=== PATIENT | female | born 1940 | race Caucasian/White ===

== ENCOUNTER 2022-03-15 13:27 | Emergency (ER) | payer OTHER ==
[~2022-03-15] VITALS: Ht 165.1 cm; Wt 73.9 kg
[2022-03-15 13:43] VITALS: BP_SYST 122
--- NOTE | 2022-03-15 15:50 | NUR ---
DTR BRINGS IN PT FOR C/O RT FLANK PAIN X 1 WEEK AFTER A TRIP AND FALL, DENIES LOC. PT WENT TO AND WAS INFORMED TO GET CT SCAN WHICH IS WHY SHE IS HERE. DENIES DYSURIA. PT ON BLOOD THINNER FOR CARDIAC ISSUES-AFIB. SHE WAS PLACED ON ANTIBIOTICS FOR A URINARY INFECTION. C/O DYSURIA 3 DAYS AGO, FEELING BETTER NOW.
--- NOTE | 2022-03-15 15:57 | NUR ---
DR BOTELLO IN TRIAGE FOR EXAM
[2022-03-15 16:51] LABS: BASOPHILS % (AUTO) 0.6 % (0.0-2.0); EOSINOPHILS % (AUTO) 0.1 % (0.0-4.0); HEMATOCRIT 41.7 % (36-48); HEMOGLOBIN 14.2 g/dL (12.0-16.0); LYMPHOCYTES # (AUTO) 0.9 K/uL (1.0-5.5); LYMPHOCYTES % (AUTO) 12.9 % (20.5-51.5); MEAN CORPUSCULAR HEMOGLOBIN 31 pg (27-31); MEAN CORPUSCULAR HGB CONC 34 % (32-36); MEAN CORPUSCULAR VOLUME 92 fL (79.0-98.0); MONOCYTES # (AUTO) 0.7 K/uL (0.0-1.0); MONOCYTES % (AUTO) 10.2 % (1.7-9.3); NEUTROPHILS # (AUTO) 5.3 K/uL (1.8-7.7); NEUTROPHILS % (AUTO) 76.2 % (40.0-70.0); PLATELET COUNT (AUTO) 195 K/uL (130-430); RED BLOOD CELL COUNT(AUTO) 4.54 MIL/uL (4.2-6.2); RED CELL DISTRIBUTION WIDTH 13.3 % (9.0-15.0); WHITE BLOOD COUNT (AUTO) 6.9 K/uL (4.8-10.8)
[2022-03-15 19:55] LABS: ANION GAP 8 (5-15); CALCIUM 8.9 mg/dL (8.4-11.0); CHLORIDE 99 mmol/L (98-107); CREATININE 0.71 mg/dL (0.55-1.30); GLUCOSE 101 mg/dL (70-99); POTASSIUM 4.4 mmol/L (3.5-5.1); SODIUM SERUM 133 mmol/L (136-145); UREA NITROGEN, BLOOD 11 mg/dL (8-21)
[2022-03-15 20:01] LABS: ALANINE AMINOTRANSFERASE 20 U/L (12-78); ALBUMIN 3.8 g/dL (3.4-4.8); ASPARTATE AMINOTRANSFERASE 25 U/L (10-37); LIPASE 106 U/L (73-393); TOTAL BILIRUBIN 0.6 mg/dL (0.0-1.0)
[2022-03-15] MEDS ORDERED: ACET-2634 PO (20:35)
[2022-03-15 20:58] VITALS: BP_SYST 124
--- NOTE | 2022-03-15 21:00 | NUR ---
Patient given written and verbal discharge instructions and verbalizes understanding. Pt did not want to wait for results, MD Troncoso went over available results. Per pt, she will call for the rest of the results. Patient in stable condition. ID arm band removed. Rx of Acetaminophen XTRA STR sent to preffered pharmacy. Patient educated on pain management and to follow up with PMD. Pain Scale 0/10. Opportunity for questions provided and answered. Medication side effect fact sheet provided.
[2022-03-15 21:54] LABS: BILIRUBIN,URINE NEGATIVE (NEGATIVE); BLOOD, URINE NEGATIVE (NEGATIVE); CLARITY/URINE CLEAR (CLEAR); COLOR,URINE YELLOW (YELLOW); GLUCOSE,URINE NEGATIVE (NEGATIVE); KETONES,URINE NEGATIVE (NEGATIVE); LEUKOCYTE ESTERASE ,URINE NEGATIVE (NEGATIVE); NITRITE, URINE NEGATIVE (NEGATIVE); PROTEIN URINE NEGATIVE (NEGATIVE); UROBILINOGEN,URINE 0.2 (0.2-1.0)
== END 2022-03-15 20:58 | disposition home or self-care (01) ==
LOC: SED 13:27
DX: S30.1XXA Contusion of abdominal wall, initial encounter (principal); R10.9 Unspecified abdominal pain; E78.5 Hyperlipidemia, unspecified; I10 Essential (primary) hypertension; W18.30XA Fall on same level, unspecified, initial encounter; Y93.89 Activity, other specified; Y92.89 Other specified places as the place of occurrence of the external cause; Y99.8 Other external cause status
CPT/HCPCS: 36415; 71045; 76376; 80053; 81003; 83690; 85025; 87086; 99285